=== PATIENT | female | born 1980 | race Caucasian/White ===

== ENCOUNTER 2018-09-24 10:31 | Emergency (ER) | payer OTHER ==
[~2018-09-24] VITALS: Ht 177.8 cm; Wt 80.2 kg
[2018-09-24] MEDS ORDERED: ZOFRAN4 MG SL (12:41)
[2018-09-24] MEDS ORDERED: CIPRO500 MG PO (12:41)
[2018-09-24] MEDS ORDERED: IBUPROFEN600 MG PO (12:41)
== END 2018-09-24 13:14 | disposition home or self-care (01) ==
LOC: ED 10:31
DX: N12 Tubulo-interstitial nephritis, not specified as acute or chronic (principal)
CPT/HCPCS: 70450; 71045; 80053; 81001; 83605; 84703; 85025; 87077; 87088; 87186; 87502; 96361; 96365; 96375; 99284-25; J0696; J1885; J2405; J7030

== ENCOUNTER 2024-01-29 11:20 | Observation (INO) | payer OTHER ==
[~2024-01-29] VITALS: Ht 177.8 cm; Wt 103.4 kg
[~2024-01-29 11:20] MED LIST: CIPRO500 MG PO; IBUPROFEN600 MG PO; ZOFRAN4 MG SL
[2024-01-29] MEDS ORDERED: HYDROmorphone HCL 1 MG/ML SYR IV ONE (12:00)
[2024-01-29] MEDS ORDERED: SODIUM CHLORIDE 0.9% 1,000 ML IV PRN (12:00)
[2024-01-29] MEDS ORDERED: ondansetron HCL 4 MG/2 ML VIAL IV ONE (12:00)
[2024-01-29 12:11] LABS: BASOPHILS 0.7 % (0-2); EOSINOPHILS 0.8 % (0-6); HEMATOCRIT 15.9 % (35.0-50.0); LYMPHOCYTES 23.4 % (24-44); MCH 18.8 (27-36); MCHC 30.5 g/dl (30-36); MCV 61.7 fl (81-99); MONOCYTES 10.1 % (0-12); PLATELET COUNT 264 K/uL (140-440); RBC 2.58 M/ul (4.3-5.7); RDW 19.6 (10.5-15.0)
[2024-01-29 12:15] LABS: HEMOGLOBIN 4.9 g/dL (12.0-18.0)
[2024-01-29 12:22] LABS: INR 1.06 (0.80-1.30); PROTIME 13.5 Sec (11.2-14.2)
[2024-01-29 12:24] LABS: PARTIAL THROMBOPLASTIN TIME 26.3 Sec (22.9-41.3)
[2024-01-29 12:37] LABS: ALBUMIN 3.1 g/dL (3.4-5.0); ALBUMIN/GLOBULIN RATIO 0.82 (1.1-2.4); ANION GAP 16.8 (7-21); BILIRUBIN, TOTAL 0.5 ng/dL (0.2-1.0); BUN/CREATININE RATIO 12.19 (6.0-28.6); CALCIUM 8.5 mg/dL (8.5-10.1); CREATININE, SERUM 0.82 mg/dL (0.55-1.02); POTASSIUM 3.8 mmol/L (3.5-5.1); PROTEIN, TOTAL 6.9 g/dL (6.4-8.2)
[2024-01-29 12:44] LABS: ABO O; RH NEGATIVE
[2024-01-29 12:45] LABS: ANTIBODY SCREEN NEGATIVE
[2024-01-29] MEDS ORDERED: MIDAZOLAM HCL 2 MG/2 ML VIAL ONE (15:05)
[2024-01-29] MEDS ORDERED: LIDOCAINE HCL 2% 5 ML SDV ONE (15:07)
[2024-01-29] MEDS ORDERED: propofoL 200 MG/20 ML VIAL ONE ×2 (15:07→15:50)
[2024-01-29] MEDS ORDERED: KETAMINE in NS 50 MG/5 ML SYR ONE (15:11)
[2024-01-29] MEDS ORDERED: ondansetron HCL 4 MG/2 ML VIAL ONE (15:11)
[2024-01-29] MEDS ORDERED: KETOROLAC TROMETHAMINE 30 MG/ML VIAL ONE (15:11)
[2024-01-29] MEDS ORDERED: DOXYCYCLINE HYCLATE 100 MG CAP PO SCH (15:15)
[2024-01-29] MEDS ORDERED: SODIUM CHLORIDE 0.9% 500 ML IV ONE (15:43)
[2024-01-29 16:22] LABS: IS CROSSMATCH COMPATIBLE
[2024-01-29] MEDS ORDERED: ACETAMINOPHEN 500 MG TAB PO PRN (16:30)
[2024-01-29] MEDS ORDERED: ACETAMINOPHEN 500 MG TAB PO ONE (16:30)
[2024-01-29] MEDS ORDERED: diphenhydrAMINE HCL 25 MG CAP PO PRN (16:30)
[2024-01-29] MEDS ORDERED: ondansetron HCL 4 MG/2 ML VIAL IV PRN (16:30)
[2024-01-29] MEDS ORDERED: ZOLPIDEM TARTRATE 5 MG TAB PO PRN (16:30)
[2024-01-29] MEDS ORDERED: LACTATED RINGER'S 1,000 ML IV SCH (16:30)
[2024-01-29] MEDS ORDERED: OXYCODONE/APAP 5/325 TAB PO PRN (16:30)
[2024-01-29] MEDS ORDERED: diphenhydrAMINE HCL 25 MG CAP PO ONE (16:30)
--- NOTE | 2024-01-29 17:16 | NUR ---
PT ARRIVES TO MED-SURG AT 1707 VIA BED ESCORTED BY KENNA VAZQUEZ. PT IS ALERT AND ORIENTED UPON ARRIVAL, EATING ICE. VSS. BEDSIDE REPORT RECEIVED FROM KENNA VAZQUEZ. FIRST UNIT OF PRBCS INFUSING UPON ARRIVAL, IV PATENT, DRESSING INTACT, PT DENIES PAIN OR NAUSEA AT THIS TIME. SMALL AMOUNT OF SEROSANGUINEOUS DRAINAGE NOTED ON PERIPAD.
[2024-01-29 17:22] VITALS: BP 104/53
--- NOTE | 2024-01-29 17:49 | NUR ---
01/29/24 1749 Jacquelyn Vaughn 1614-PT ARRIVED TO PACU UNRESPONSIVE, ON 6L/MASK. VS TAKEN. RR SLIGHTLY TACHYPNEIC. PT WITH KRISH PAD IN PLACE AND NO DRAINAGE PRESENT UPON ARRIVAL TO PACU. 1616-PT BEGINNING TO WAKE UP. PT MOVING ABOUT IN BED QUITE A BIT. PT REORIENTED AND REMINDED TO MAKE SLOW MOVEMENTS UNTIL MORE AWAKE. PT ANXIOUS AND REASSURANCE PROVIDED. ANXIETY DECREASED. PT ASKING FOR ICE CHIPS AND ASKED TO WAIT A LITTLE LONGER TO WAKE UP MORE. PT COMPLIED WITH REQUEST. HOB ELEVATED TO APPROX 30 DEGREES. 1619-PT DENIES PAIN OR NAUSEA. VSS. PT REMOVED O2. SATS MID 90'S. PT AGAIN REQUESTING ICE CHIPS. HOB ELEVATED TO APPROX 60 DEGREES AT PT REQUEST. PT PROVIDED WITH SMALL CUP OF ICE CHIPS AND SPOON. 1624-PT NOTED WITH DECREASED SATURATIONS TO 87% ON RA. PT ASKED TO TAKE DEEP BREATHS AND SATS INCREASED ONLY SLIGHTLY TO 89%. 2L/NC PLACED. SATS IMPROVED TO UPPER 90'S. PT CONT TO DENY PAIN OR NAUSEA WHEN ASKED. PERIPAD REMAINS W/O BLEEDING/DISCHARGE NOTED. 1633-1ST UNIT OF PRBC'S ARRIVED. LR IN LAC STOPPED. IV FLUSHED WITH 10 ML NS. 1641-1ST UNIT OF BLOOD STARTED. O2 SAT REMAINS 98-100% ON 2L/NC. PT DROWSY BUT TALKING AND ABLE TO ANSWER QUESTIONS APPROPRAITELY AND MAKE HER NEEDS KNOWN. 1645-PT REQUESTING TO TAKE O2 OFF. O2 TIRATED TO RA. SATS REMAIN 93% OR GREATER ON RA. BREATHING REMAINS EVEN AND UNLABORED. RESPS 16-18. 1650-PT REQUESTING M ORE ICE CHIPS AND PROVIDED WITH ANOTHER SMALL CUP. PT CONT TO DENY PAIN OR NAUSEA WHEN ASKED. 1656-15 MIN VS CHECK COMPLETED FROM START OF 1ST UNIT BLOOD. VSS. PT CONT TO DENY PAIN/NAUSEA WHEN ASKED. NO SOB OR RASHED NOTED. IV SITE PATENT AND W/O S/SX INFILTRATION, ECT. 1658-PT PROVIDED WITH MORE WARM BLANKETS. MS FLOOR NOTIFED THAT PT WILL BE BROUGHT SOON. 1705-VSS. PT CONT TO DENY PAIN OR NAUSEA WHEN ASKED. PT SITTING UP IN BED EATING ICE CHIPS AND CONVERSING WITH STAFF. KRISH-PAD REMAINS FREE OF BLEEDING OR DISCHARGE. 1710-PT TRANSFERRED TO MS FLR, RM 115 VIA BED. PTS MOTHER IN ROOM UPON ARRIVAL. REPORT GIVEN TO MS RN.
[2024-01-29 18:19] VITALS: BP 109/55
[2024-01-29 18:45] LABS: ABO O; RH NEGATIVE
--- NOTE | 2024-01-29 19:01 | NUR ---
UPON COMPLETION OF 1ST UNIT OF BLOOD NOTED TEMP CHANGE FROM 97.[address] FERGUSON NOTIFIED[address] DR. FERGUSON ASKS IF BENADRYL AND TYLENOL WAS RECEIVED PRIOR TO START OF 1ST UNIT. UPON CHART REVIEW NO CHARTING WAS PRESENT TO SHOW THAT BENADRYL OR TYLENOL WAS RECEIVED PRIOR TO THE START OF THE 1ST UNIT. 1ST UNIT STARTED IN DAY SURGERY. NOTED TYLENOL AND BENADRYL OVER DUE IN EMAR. DR. FERGUSON INSTRUCTS OKAY TO START SECOND UNIT OF BLOOD AND TO GIVE OVER DUE TYLENOL AND BENADRYL NOW. PT DENIES PAIN OR DISCOMFORT AT THIS TIME. VISITORS X 3 IN ROOM.
--- NOTE | 2024-01-29 19:17 | NUR ---
SHIFT REPORT RECEIVED FROM NELA RN, PT ALERT AND ORIENTENED, DENIES PAIN OR ANY SIGNS OF BLOOD REACTION, BLOOD #2 RBC INFUSING WELL AT 180ML/HR, FAMILY VISITING NOW HOME FOR THE NIGHT, PT TAKING FEW BITS OF HER DINNER, DENIES NAUSEA, CPOX IN PLACE AND OXYGEN SATS STABLE, HOB ELEVATED APPROX 25-30 DEGREES.
[2024-01-29 20:30] VITALS: BP 109/56
--- NOTE | 2024-01-29 20:30 | NUR ---
PT AWAKE AND ALERT, VS DONE AND STABLE, SCANT SANG DRAINAGE NOTED ON PERIPAD, PT ASSISTED UP TO BR TO VOID, SOME DIZZINESS REMAINS, PT ABLE TO VOID 200ML YELLOW URINE, FRESH PERIPAD GIVEN, BACK TO BED, BLOOD INFUSING WELL, IV SITE PATENT, ASSESSMENT COMPLETED, SCD REPLACED, SNACKS AND ICE GIVEN, PT WITHOUT N/V.
[2024-01-29 21:35] VITALS: BP 118/69
--- NOTE | 2024-01-29 21:35 | NUR ---
VS STABLE, AFEBRILE, IV SITE INTACT, DENIES VAGINAL BLEEDING AT THIS TIME, PAD IN PLACE.
--- NOTE | 2024-01-29 21:46 | NUR ---
PT MEDICATED WITH MOTRIN FOR HEADACHE AND CRAMPING 11/06, PT ALERT, VS COMPLETED AND STABLE, 3RD UNIT OF PRBCS STARTED AT 2144, NEW TUBING, INFUSING WELL PER LEFT AC, SITE INTACT. PT REQUESTING PUDDING AND CRACKERS, GIVEN, CONTINUES WITHOUT N/V.
[2024-01-29] MEDS ORDERED: IBUPROFEN 800 MG TAB PO SCH (22:00)
[2024-01-29 22:03] VITALS: BP 107/59
--- NOTE | 2024-01-29 22:09 | NUR ---
PT DENIES SX OF BLOOD REACTION, VS STABLE AFEBRILE, IV SITE PATENT, SNACKS GIVEN PER PT REQUEST, BLOOD INFUSION RATE INCREASED TO 180ML/HR, IV SITE PATENT. PT RESTING WATCHING TV, NO VAGINAL BLEEDING AT THIS TIME.
--- NOTE | 2024-01-29 23:35 | NUR ---
PT ASLEEP, RESP EVEN AND REG, #3 RBC WITH APPROX 50ML LEFT TO INFUSE.
[2024-01-29 23:47] VITALS: BP 109/56
[2024-01-30 00:01] VITALS: BP 106/64
[2024-01-30 00:17] VITALS: BP 106/64
--- NOTE | 2024-01-30 00:23 | NUR ---
#3 RBC COMPLETED, IV SITE FLUSHES WELL, VS DONE AND STABLE, PT WITHOUT COMPLAINTS OF SX OF REACTION, PT UP TO BR TO VOID 200ML YELLOW URINE, SCANT LIGHT SANG DRAINAGE NOTED ON PERIPAD, PT DENIES DIZZINESS BUT FEELS WEAK ALTHOUGH STATES SHE FEELS SO MUCH BETTER THAN BEFORE SURGERY, SCDS REMOVED PER PT'S REQUEST, PT RESTING QUIETLY. LR STARTED AT 75ML/HR PER ORDER, IV SITE PATENT, CUP OF ICE GIVEN PER PT REQUEST, PT STATES MALONEY IS GONE AND REPORTS ONLY MILD CRAMPING, DENIES NEED FOR MEDICATION AT THIS TIME.
--- NOTE | 2024-01-30 00:45 | NUR ---
PT RESTING QUIETLY WITH EYES CLOSED, RESP EVEN AND REG, WITHOUT DISTRESS.
--- NOTE | 2024-01-30 02:00 | NUR ---
PT APPEARS TO SLEEP, RESP EVEN AND REG, LAYING ON LEFT SIDE, IVF INFUSING WELL.
--- NOTE | 2024-01-30 02:05 | NUR ---
ANSWERED CALL LIGHT. PATIENT GOT UP TO USE THE BATHROOM WITH MINIMAL ASSIST FOR IV POLE MANAGEMENT. PATIENT IS BACK IN BED. SODA, ICE CHIPS AND MARLENE CRACKERS PROVIDED PER PATIENT.
[2024-01-30 04:00] VITALS: BP 121/48
[2024-01-30 04:02] VITALS: BP 121/48
--- NOTE | 2024-01-30 04:03 | NUR ---
LAB IN FOR 4 HOUR POST TRANSFUSION BLOOD DRAW, PT ALERT, DENIES PAIN, VS STABLE, AFEBRILE, IV PATENT AND INFUSING WELL, PT DENIES NEEDS AT THIS TIME.
[2024-01-30 04:09] LABS: BASOPHILS 0.6 % (0-2); EOSINOPHILS 2.7 % (0-6); HEMATOCRIT 23.4 % (35.0-50.0); HEMOGLOBIN 7.4 g/dL (12.0-18.0); LYMPHOCYTES 26.9 % (24-44); MCH 22.7 (27-36); MCHC 31.6 g/dl (30-36); MCV 71.8 fl (81-99); MONOCYTES 8.3 % (0-12); NEUTROPHILS 61.5 % (39-80); PLATELET COUNT 194 K/uL (140-440); RBC 3.26 M/ul (4.3-5.7)
--- NOTE | 2024-01-30 04:58 | NUR ---
0400 LAB RESULTS REVIEWED, PT H/H NOW 7.4/23.4, WBC 6.1.
--- NOTE | 2024-01-30 05:49 | NUR ---
PT MEDICATED WITH RT MOTRIN FOR CRAMPING PAIN 07/09, PT REQUESTING TEA, GIVEN.
--- NOTE | 2024-01-30 07:37 | NUR ---
Patient sitting up in bed, alert and oriented x4. Patient reports she is a bit nauseated at this time. Admin zofran 4mg IV at this time. Patient encouraged to rest at this time. IV patent, fluids infusing per order. Fresh water at bedside. Patient reports scan vaginal bleeding when she wipes only, per pad cdi. Patient encouraged to call if she needs anything.
--- NOTE | 2024-01-30 07:44 | NUR ---
Snack provided to patient at this time. Patient in bed watching tv, no acute distress.
--- NOTE | 2024-01-30 07:52 | NUR ---
THIS PHILOSOPHY SPECIALIST IN TO UPDATE WHITE BOARD. PATIENT REFUSED GETTING UP TO CHAIR AT THIS TIME. CALL LIGHT IN REACH. NO FURTHER NEEDS AT THIS TIME.
--- NOTE | 2024-01-30 08:55 | NUR ---
medications reconciled
[2024-01-30 09:33] VITALS: BP 123/63
--- NOTE | 2024-01-30 09:35 | NUR ---
VITALS COMPLETE, I'S AND O'S DONE. PT RESTING IN BED, RR EVEN AND UNLABORED. ICE PROVIDED. DENIES ANY FURTHER NEEDS, CALL LIGHT IN REACH
--- NOTE | 2024-01-30 11:20 | OR ---
[facility] [address], [place] [address] Signed DATE OF OPERATION: SURGEON: Keo Khan PREOPERATIVE DIAGNOSES: 1. Retained products of conception following an elective termination of with mifepristone and misoprostol. 2. Acute blood loss anemia. POSTOPERATIVE DIAGNOSES: 1. Retained products of conception following elective termination of with mifepristone and misoprostol. 2. Acute blood loss anemia. PROCEDURE PERFORMED: Suction, dilation and curettage under ultrasound guidance. ANESTHESIA: General. ESTIMATED BLOOD LOSS: 25 mL. COMPLICATIONS: None. FINDINGS: Products of conception consistent with dating. INDICATIONS: The patient is a 43-year-old -0-3-2 at approximately 9 weeks and 2 days by her ultrasound given at [facility] of 6w3d on 01/09/24. She reported to the emergency department with vaginal bleeding and complaint shortness of breath, lightheadedness and dizziness. Ultrasound showed retained products of conception. Hemoglobin was noted to be 4.9. The patient was consented for a dilation and curettage under ultrasound guidance. DESCRIPTION OF PROCEDURE: The patient was taken to the operating room where a time-out was performed to confirm the correct patient and correct procedure. General anesthesia was established. The Electronically Signed By: ROBSON FERGUSON MD 01/30/24 1120 PATIENT NAME: ITZ SHAH OPERATIVE REPORT DATE OF : 84 REPORT #: [id number] PHYSICIAN: ROBSON FERGUSON MD PCP: NO PRIMARY CARE PHYSICIAN REPORT IS CONFIDENTIAL AND NOT TO BE RELEASED WITHOUT AUTHORIZATION [facility] [address], [place] [address] Signed patient was then positioned on the operating table in the high dorsal lithotomy position with legs supported using stirrups. All pressure points were padded. The patient was then prepped and draped in the usual sterile fashion. Prior to general anesthesia, the patient was given doxycycline 200 mg p.o. for antibiotic prophylaxis. Ultrasound showed continued products of conception in the uterus. A weighted speculum was then inserted into the vagina and a Caicedo retractor was then placed into the vagina to visualize the cervix. There was slight bleeding noted coming from the cervical os. The anterior lip of the cervix was visualized and grasped using an Allis tenaculum. The cervix was adequately dilated for introduction of #8 curved suction curette. The curette was inserted until the uterine fundus reached. The suction was then turned on and curetting of the endometrial cavity from the fundus to the internal cervical os was performed. This was repeated four more times. By the end of the procedure, the ultrasound showed a thin uterine stripe. The curette was then withdrawn. Products of conception were sent to Pathology. Following the curetting, good hemostasis was noted. The tenaculum was removed from the anterior lip of the cervix and hemostasis was noted at the tenaculum site. The weighted speculum was then removed from the vagina. The patient tolerated the procedure well and was transferred to the recovery room in stable condition. All needle, sponge and instrument counts were noted to be correct x2 at the end of the procedure. Keo Khan CAF/MODL /[id number] Copies: ~ Electronically Signed By: ROBSON FERGUSON MD 01/30/24 1120 PATIENT NAME: ALYSSAITZ TIGRE OPERATIVE REPORT DATE OF : 84 REPORT #: [id number] PHYSICIAN: ROBSON FERGUSON MD PCP: NO PRIMARY CARE PHYSICIAN REPORT IS CONFIDENTIAL AND NOT TO BE RELEASED WITHOUT AUTHORIZATION
--- NOTE | 2024-02-03 14:09 | PATH ---
[facility] [address] [place], [place] [address] Signed SPECIMEN(S): A PRODUCTS OF CONCEPTION SPECIMEN SOURCE: A. PRODUCTS OF CONCEPTION CLINICAL HISTORY: Incomplete AB, D+C FINAL PATHOLOGIC DIAGNOSIS: Products of conception: - Scant fragments of immature chorionic villi, endometrium with focal features consistent with implantation site, blood clot and inflammation consistent with clinical incomplete . JVR:darren MICROSCOPIC EXAMINATION: Histologic sections of all submitted blocks are examined by light microscopy. These findings, together with the gross examination, support the pathologic diagnosis. GROSS DESCRIPTION: The specimen, labeled and designated "Junior Garcia, products conception," is received in formalin and consists of multiple fragments bull to red-brown soft tissue measuring 5.0 x 5.0 x 2.4 cm and weighs 18 g. Specimen sectioned to reveal no grossly identifiable embryonic or tissue seen. Director Of Analytics sections submitted in single cassette. XIAO (under the direct supervision of a pathologist) The Gross Description was prepared using a voice recognition system. The report was reviewed for accuracy; however, sound-alike word errors, addition and/or deletions may occur. If there is any question about this report, please contact Client Services. PERFORMING LABORATORY: Technical component was performed by [facility], [address] [place] [id number] (CLIA# [id number]). Professional interpretation was performed by [facility], [address] [place] [id number] (CLIA#: [id number]). Diagnostician: Wesley Mukherjee MD Pathologist Electronically Signed 02/03/2024 PATIENT NAME: ITZ GARCIA PATHOLOGY DATE OF : 84 REPORT #: [id number] PHYSICIAN: [facility] PCP: NO PRIMARY CARE PHYSICIAN REPORT IS CONFIDENTIAL AND NOT TO BE RELEASED WITHOUT AUTHORIZATION [address] [address] Signed Copies: ~ PATIENT NAME: ITZ GARCIA PATHOLOGY DATE OF : 84 REPORT #: [id number] PHYSICIAN: [facility] PCP: NO PRIMARY CARE PHYSICIAN REPORT IS CONFIDENTIAL AND NOT TO BE RELEASED WITHOUT AUTHORIZATION
== END 2024-01-30 11:30 | disposition home or self-care (01) ==
LOC: ED 11:20 → MS 11:23
PROVIDERS: Emergency Medicine; ADMIT Obstetrics & Gynecology; ATTEND Obstetrics & Gynecology
PROC: 10D17ZZ Extraction of Products of Conception, Retained, Via Natural or Artificial Opening (ICD-10-PCS; principal; 2024-01-29 15:33)
DX: O07.1 Delayed or excessive hemorrhage following failed attempted termination of pregnancy (principal); D62 Acute posthemorrhagic anemia; N12 Tubulo-interstitial nephritis, not specified as acute or chronic
CPT/HCPCS: 00940; 10160; 36415; 36430; 76830; 76856; 76942; 80053; 84702; 85025; 85060; 85610; 85730; 86850; 86900; 86901; 86922; 88305; 96374; 96375; 96376; 99285-25; A9270; G0378; J1170; J1885; J2001; J2250; J2405; J2704; J3490; J7030; J7121; P9016